=== PATIENT | female | born 1960 | race Caucasian/White ===

== ENCOUNTER 2018-06-24 13:07 | Outpatient (CLI) | payer BC | END 2018-06-24 13:08 | disposition home or self-care (01) | LOC: BICMAMMO 13:07 | PROVIDERS: ATTEND Family Medicine | DX: Z12.31 Encounter for screening mammogram for malignant neoplasm of breast (principal); R92.1 Mammographic calcification found on diagnostic imaging of breast | CPT/HCPCS: 77063; 77067 ==

== ENCOUNTER 2018-10-23 09:23 | Day surgery (SDC) | payer BC ==
[2018-10-22 11:49] VITALS: BMI 38.7
[2018-10-23] MEDS ORDERED: Ciprofloxacin 0.2% Otic 1 DROP CON ONE (12:53)
[2018-10-23] MEDS ORDERED: Bacitracin Zinc Ointment 30 gm TUBE ONE (12:53)
[2018-10-23] MEDS ORDERED: Lidocaine 1% w/Epinephrine 1:100K 30 ML VIAL ONE (12:53)
[2018-10-23] MEDS ORDERED: Fentanyl 100 MCG/2 ML VIAL ONE ×2 (12:55)
[2018-10-23] MEDS ORDERED: Scopolamine 1.5 mg/72 hour Patch ONE (12:57)
[2018-10-23] MEDS ORDERED: PROPOFOL 200 MG/20 ML VIAL ONE (14:47)
[2018-10-23] MEDS ORDERED: Lidocaine 1% PF 5 ML VIAL ONE (14:47)
[2018-10-23] MEDS ORDERED: Glycopyrrolate 0.2 MG/ML 5 ML SYRINGE ONE (14:47)
[2018-10-23] MEDS ORDERED: Ondansetron PF 4 MG/2 ML Vial ONE (14:47)
[2018-10-23] MEDS ORDERED: Hydrocodone-Acetamin 15 ML UDCUP ONE (14:54)
--- NOTE | 2018-10-23 22:03 | OP ---
DATE OF PROCEDURE: 10/23/2018 PREOPERATIVE DIAGNOSES: 1. Right tympanic membrane perforation. 2. Right conductive hearing loss. POSTOPERATIVE DIAGNOSES: 1. Right tympanic membrane perforation. 2. Right conductive hearing loss. PROCEDURE: Right tympanoplasty without ossicular chain reconstruction. ESTIMATED BLOOD LOSS: 10 mL. COMPLICATIONS: None. ANESTHESIA: GETA. DESCRIPTION OF PROCEDURE: The patient was taken to the operating room and placed on the table. General endotracheal anesthesia was obtained by the anesthesia staff. The head was turned exposing the right ear. A shoulder roll was placed and the head of bed was turned 90 degrees. Following this, the patient was prepped and draped in standard surgical fashion. Following this, 6 mL of 1% lidocaine with 1:100,000 epinephrine was injected in the postauricular crease overlying the temporalis fascia and at the bony cartilaginous juncture of the external auditory canal. Following this, the operating microscope was brought into the OR and the tympanic membrane was visualized. There was 20% to 30% posteriorly and centrally located tympanic membrane perforation noted. Middle ear mucosa was healthy. A Villanueva needle and cupped forceps were used to trim the edges of the perforation. Following this, an incision was made in the postauricular area. Dissection was carried down to the level of the temporalis fascia. A 1 cm x 2 cm piece of temporalis fascia was harvested and was trimmed of any fat and debris. The fascia was then grasped and allowed to dry. Following this, the wound was closed using Monocryl stitches and Dermabond for the skin. The external auditory canal was then visualized and a speculum was placed. A tympanomeatal flap was elevated using a 90 degree blade, approximately 1 cm from the annulus. The tympanomeatal flap and the annulus were elevated. The temporalis fascia graft was then placed in a medial onlay fashion. Middle ear was then filled with Floxin soaked Gel-Foam, and the tympanomeatal flap and the new fascial graft was returned to its new anatomic position. The lateral aspect of the tympanic membrane was then packed with Gel-Foam as well. The patient tolerated the procedure well. Job ID: [id number]
== END 2018-10-23 16:05 | disposition home or self-care (01) ==
LOC: SDC 09:23
PROVIDERS: ATTEND Otolaryngology Plastic Surgery within the Head & Neck
PROC: 09R707Z Replacement of Right Tympanic Membrane with Autologous Tissue Substitute, Open Approach (ICD-10-PCS; principal; 2018-10-23)
DX: H72.01 Central perforation of tympanic membrane, right ear (principal); H90.11 Conductive hearing loss, unilateral, right ear, with unrestricted hearing on the contralateral side; E03.9 Hypothyroidism, unspecified; F32.9 Major depressive disorder, single episode, unspecified; Z79.899 Other long term (current) drug therapy
CPT/HCPCS: 85014; 93005; 93010; J2001; J2405; J2704; J3010

== ENCOUNTER 2019-06-30 12:35 | Outpatient (CLI) | payer BC ==
--- NOTE | 2019-06-30 16:05 | MMO ---
Bilateral MAMMO Bilat Screen [facility]. CLINICAL HISTORY: Patient is 59 years old and is seen for screening. The patient has no family history of breast cancer. The patient has no personal history of cancer. VIEWS: The views performed were: bilateral craniocaudal with tomosynthesis and bilateral mediolateral oblique with tomosynthesis. FILMS COMPARED: The present examination has been compared to prior imaging studies performed at [facility] on 04/03/2017 and 06/24/2018, and at [facility] on 03/02/2014 and 01/25/2016. This study has been interpreted with the assistance of computer-aided detection. MAMMOGRAM FINDINGS: There are scattered fibroglandular densities. There are stable benign appearing calcifications seen in both breasts. There are no suspicious masses, calcifications or areas of architectural distortion. There are no suspicious masses, suspicious calcifications, or new areas of architectural distortion. IMPRESSION: THERE IS NO MAMMOGRAPHIC EVIDENCE OF MALIGNANCY. A ROUTINE FOLLOW-UP MAMMOGRAM IN 1 YEAR IS RECOMMENDED. THE RESULTS OF THIS EXAM WERE SENT TO THE PATIENT. ACR BI-RADS Category 2 - Benign finding MAMMOGRAPHY NOTE: 1. A negative mammogram report should not delay a biopsy if a dominant of clinically suspicious mass is present. 2. Approximately 10% to 15% of breast cancers are not detected by mammography. 3. Adenosis and dense breasts may obscure an underlying neoplasm. Reported by: FLAKITO LIMON MD Electonically Signed: [id number]
== END 2019-06-30 12:36 | disposition home or self-care (01) ==
LOC: BICMAMMO 12:35
PROVIDERS: ATTEND Family Medicine
DX: Z12.31 Encounter for screening mammogram for malignant neoplasm of breast (principal)
CPT/HCPCS: 77063; 77067